=== PATIENT | male | born 1965 | race Caucasian/White ===

== ENCOUNTER 2021-11-23 11:31 | Emergency (ER) | payer OTHER, SELFPAY ==
--- NOTE | ~2021-11-23 | CT_ITS ---
EXAMINATION: CT abdomen pelvis w con DATE: 11/23/2021 14:23 INDICATION: Epigastric abdominal pain TECHNIQUE: Computed tomography (CT) of the abdomen and pelvis was performed with 100 cc Omnipaque 350 intravenous contrast. Automated exposure control and iterative reconstruction technique were employe d. Exam dose: 256.11 mGy-cm total exam DLP. COMPARISON: 05/04/2018 CT abdomen pelvis FINDINGS: Preferentially peripheral right greater than left chronic septal thickening and bronchiecta sis, likely due to usual interstitial pneumonia interstitial fibrosis. Very prominent pulmonary arteries at the left lower lobe are again noted. Cardiomegaly. No pericardial or pleural effusion. Small sliding hiatal hernia. The liver, gallbladder, bile ducts, pancreas and pancreatic duct are unremarkable. There are calcifie d splenic granulomas. Normal splenic size. Normal morphology of the adrenal glands. There are occasional very small renal cysts. No urinary tract calculus or hydroureteronephrosis. Normal caliber of the abdominal aorta. Mild abdominal aortic and to a greater extent bilateral iliac artery calcifications. No intraperitoneal or retroperitoneal or pelvic mass lesion or adenopathy or a scites is evident. There is moderate prostate enlargement and moderate diffuse thickening of the urin haley bladder wall. There is nonspecific thickening of the wall of the gastric fundus of the duodenum smell consider clover ritis, duodenitis Normal appendix. There is a moderately prominent of fecal material within the colon. No bowel obstruc tion, bowel wall thickening, pneumatosis or intraperitoneal free air is evident. There are some small bowel air-fluid levels without abnormal dilatation which may be due to enteritis or mild adynamic il eus. Small fat-containing umbilical hernia. Very small fat-containing right inguinal hernia. There is severe degenerative disc disease at L4-5 and L5-S1. IMPRESSION: Usual interstitial pneumonia and bronchiectasis, chronic Chronic prominent dilated left lower lobe pulmonary arteries Cardiomegaly Small sliding hiatal hernia Nonspecific thickening of the wall of the gastric fundus and duodenum; consider gastritis, duodenitis Occasional very small renal cysts Moderate prostate enlargement and diffuse mild thickening of the urinary bladder wall Small bowel air-fluid levels without dilatation, suggesting enteritis or mild adynamic ileus Normal appendix Reviewed, dictated and finalized at [facility] Reviewed, dictated and finalized at [facility] [employer] IMPRESSION: Usual interstitial pneumonia and bronchiectasis, chronic Chronic prominent dilated left lower lobe pulmonary arteries Cardiomegaly Small sliding hiatal hernia Nonspecific thickening of the wall of the gastric fundus and duodenum; consider gastritis, duodenitis Occasional very small renal cysts Moderate prostate enlargement and diffuse mild thickening of the urinary bladde r wall Small bowel air-fluid levels without dilatation, suggesting enteritis or mild a dynamic ileus Normal appendix
[2021-11-23 11:43] VITALS: BP 133/87; PULSE 66; RESP 16; TEMP 36.9; O2SAT 96
[2021-11-23 12:03] LABS: Basophils Absolute Auto 0.1 K/mm3 (0.0-0.1); Basophils Percent Auto 0.4 % (0.2-1.2); Eosinophils Percent Auto 0.1 % (0-4.4); Hematocrit 44.4 % (42.0-52.0); Hemoglobin 14.1 g/dL (14.0-18.0); Immature Granulocyte Absolute 0.04 K/mm3 (0.00-0.031); Immature Granulocyte Percent A 0.3 % (0-0.5); Lymphocytes Absolute Auto 0.71 K/mm3 (0.9-3.2); Lymphocytes Percent Auto 4.9 % (18.3-44.2); Mean Corpuscular HGB Conc 31.8 g/dl (32-36); Mean Corpuscular Hemoglobin 29.7 pg (26-34); Mean Corpuscular Volume 93.7 fl (80-100); Mean Platelet Volume 10.8 fl (7.4-10.4); Monocytes Absolute Auto 0.7 K/mm3 (0.1-0.6); Monocytes Percent Auto 4.7 % (2.6-8.5); Neutrophils Absolute Auto 12.8 K/mm3 (1.3-6.7); Neutrophils Percent Auto 89.6 % (45.5-73.1); Platelet Count Result 261 k/mm3 (150-375); Red Blood Count 4.74 M/mm3 (4.6-6.20); Red Cell Distribution Width 13.3 % (11.5-14.5); White Blood Count 14.4 K/mm3 (4.5-10.0)
[2021-11-23 12:15] LABS: Alanine Aminotransferase 19 U/L (4-50); Albumin Level 4.6 g/dL (3.5-5.1); Alkaline Phosphatase 104 U/L (38-126); Anion Gap 4 mmol/L (8-16); Aspartate Amino Transferase 29 U/L (17-59); Bilirubin,Total 0.6 mg/dL (0.2-1.3); Blood Urea Nitrogen 12 mg/dL (9-20); Calcium 9.4 mg/dL (8.4-10.2); Carbon Dioxide 34 mmol/L (22-30); Chloride 98 mmol/L (98-107); Estimated CRCL calculation 82 ml/min; Estimated Glomerular Filt Rate > 60; Glucose 140 mg/dL (65-110); Lipase 46 U/L (23-300); Sodium 136 mmol/L (137-145)
--- NOTE | 2021-11-23 12:27 | ED.ABDPAIN ---
HPI - Abdominal Pain General Chief Complaint: Abdominal Pain Stated Complaint: intense abd pain Time Seen by Provider: 11/23/21 12:15 Source: patient History of Present Illness HPI narrative: Patient presents with abdominal pain. Pain is worse at abdominal pain for approximately 10 hours. In the epigastric area it is achy, constant, no clear aggravating or alleviating factors does not radiate anywhere. Reports is causing nausea and has had some vomiting and been unable to tolerate p.o. Currently reports his pain is still present but has improved since his initial symptoms. His last bowel movement was yesterday he denies any diarrhea denies any fevers he has no known sick contacts. He denies any prior GI history. Related Data Allergies Allergy/AdvReac Type Severity Reaction Status Date / Time No Known Allergies Allergy Verified 09/05/18 10:30 Review of Systems Review of Systems: CONSTITUTIONAL: Denies fever, chills, or sweats. EYES: Denies visual changes, redness, or discharge. ENT: Denies rhinorrhea, congestion, sore throat, or otalgia. CARDIOVASCULAR: Denies chest pain, palpitations, or edema. RESPIRATORY: Denies cough or dyspnea. GASTROINTESTINAL: Reports abdominal pain nausea and vomiting GENITOURINARY: Denies dysuria or hematuria. SKIN: Denies rash or itching. MUSCULOSKELETAL: Denies back pain, joint pain, or myalgia. NEUROLOGIC: Denies headache, numbness, dizziness, or weakness. PSYCHIATRIC: Denies anxiety or depression. All systems reviewed & are unremarkable except as noted in HPI and below PMFSH Past Medical History Medical History (Updated 11/23/21 @ 15:07 by Last Bustamante MD) Atrial fibrillation Social History Social History Smoking status: Light tobacco smoker Second hand tobacco smoke exposure: No Alcohol intake: never Exam Narrative: GENERAL: Well-appearing, well-nourished, and in no acute distress. HEAD: Normocephalic, atraumatic. EYES: PERRLA and EOMI. ENT: Nares clear, no rhinorrhea or epistaxis. Mucous membranes moist. NECK: Supple. No masses. No JVD ABDOMEN: Mild pain with palpation in the epigastric area no rebound or guarding abdomen is soft nondistended EXTREMITIES: Normal range of motion. No edema. SKIN: Warm, dry, no rash. NEURO: No focal deficits. Alert and oriented x3. PSYCH: Normal mood and affect. Course Reevaluation(s) Reevaluation #1: Patient reports feeling much improved results and plan reviewed with patient. Patient is comfortable outpatient plan. Date: 11/23/21 Time: 15:05 Vital Signs Vital signs: Vital Signs Temperature 36.9 C 11/23/21 11:43 Pulse Rate 66 11/23/21 11:43 Respiratory Rate 16 11/23/21 11:43 Blood Pressure 133/87 11/23/21 11:43 Pulse Oximetry 96 11/23/21 11:43 Temperature 36.9 C 11/23/21 11:43 Pulse Rate 80 11/23/21 15:00 Respiratory Rate 19 11/23/21 15:00 Blood Pressure 135/88 11/23/21 15:00 Pulse Oximetry 97 11/23/21 15:00 MDM - Abdominal Pain MDM Narrative Medical decision making narrative: H&P as above, vss, pt looks clinically well, exam with nonacute abdomen, labs with leukocytosis otherwise clinically unremarkable, img with gastritis enteritis no acute surgical process, additional labs/img considered, symptomatic relief available as needed, on reevaluation pt continues to looks clinically well. Suspect enteritis or gastritis causing patient's symptoms, dns severe sepsis, severe dehydration, perforation, bowel obstruction, appendicitis, cholecystitis. plan to tx/monitor as op w/ pcm f/u findings/plan discussed with pt, pt agree/comfortable with plan, return precautions given Lab Data Result diagrams: 11/23/21 11:59 11/23/21 11:58 Labs: Lab Results 11/23/21 11/23/21 11/23/21 Range/Units 11:58 11:58 11:59 WBC 14.4 H (4.5-10.0) K/mm3 RBC 4.74 (4.6-6.20) M/mm3 Hgb 14.1 (14.0-18.0) g/dL Hct 44.4 (42.0-52.0) % MCV 93.7 (80-100) fl MCH
[2021-11-23] MEDS: MORPHINE SULFATE (*CRX) 4 MG/ML INJ IV PUSH (12:28)
[2021-11-23] MEDS: ONDANSETRON INJ 4 MG/2 ML VIAL IV PUSH (12:28)
[2021-11-23 12:29] LABS: Add Urine Microscopic? YES; Appearance Urine Clear (Clear); Bilirubin Urine Negative (Negative); Blood Urine Negative (Negative); Color Urine Amber (Yellow); Glucose Urine UA Negative (Negative); Ketones Urine Negative (Negative); Leukocyte Esterase Ur Negative LEU/UL (Negative); Mucus Urine Few /lpf; Nitrate Urine Negative (Negative); Protein Urine 1+ mg/dL (Negative); Urobilinogen Urine Negative mg/dL (<2.0); WBC Urine 0-3 /hpf
[2021-11-23] MEDS: SODIUM CHLORIDE 0.9% IV 1,000 ML 999 ML IV CONT (12:30)
[2021-11-23 12:57] LABS: Troponin I < 0.012 ng/mL (0.000-0.034)
[2021-11-23 13:15] VITALS: BP 126/69; PULSE 74; RESP 15; O2SAT 94
[2021-11-23 15:00] VITALS: BP 135/88; PULSE 80; RESP 19; O2SAT 97
== END 2021-11-23 15:00 | disposition home or self-care (01) ==
PROVIDERS: Emergency Provider Emergency Medicine; PCP Nurse Practitioner Family
DX: R10.13 Epigastric pain (principal); R11.2 Nausea with vomiting, unspecified; I48.91 Unspecified atrial fibrillation; F17.200 Nicotine dependence, unspecified, uncomplicated; I51.7 Cardiomegaly; K44.9 Diaphragmatic hernia without obstruction or gangrene; R93.3 Abnormal findings on diagnostic imaging of other parts of digestive tract; N28.1 Cyst of kidney, acquired; N40.0 Benign prostatic hyperplasia without lower urinary tract symptoms; R93.41 Abnormal radiologic findings on diagnostic imaging of renal pelvis, ureter, or bladder; J84.111 Idiopathic interstitial pneumonia, not otherwise specified; J47.9 Bronchiectasis, uncomplicated
CPT/HCPCS: 36415; 74177; 80053; 81001; 83690; 84484; 85025; 96361; 96374; 96375; 99284; J2270; J2405; J7030; Q9967